=== PATIENT | male | born 1950 | race Two or more races ===

== ENCOUNTER → 2024-10-09 | Outpatient (CLI) | payer OTHER, MEDICAID, SELFPAY ==
[2024-10-09 07:13] LABS: OBS Card Expiration Date 2026/09; OBS Card Lot # 23001; OBS Performed By LAB; OBS QC OK? Yes
[2024-10-09 08:05] LABS: Collection Type, Urine Clean Catch
[2024-10-09 08:30] LABS: Basophils # (Auto) 0.1 Thou/mm3 (0.0-0.2); Basophils % (Auto) 1 % (0-2.5); Eosinophils # (Auto) 0.2 Thou/mm3 (0.0-0.5); Eosinophils % (Auto) 3 % (0-10); Hematocrit 39.3 % (41.0-53.0); Hemoglobin 13.5 g/dL (13.5-16.0); Immature Granulocytes % (Auto) 0 % (0-0); Immature Granulocytes Auto 0.03 Thou/mm3 (0.00-0.00); Lymphocytes # (Auto) 2.5 Thou/mm3 (1.0-4.8); Lymphocytes % (Auto) 35 % (10-50); Mean Corpuscular HGB Conc 34.4 g/dl (31.0-37.0); Mean Corpuscular Hemoglobin 32.4 pg (25.0-35.0); Mean Corpuscular Volume 94 fL (80-100); Monocytes # (Auto) 0.7 Thou/mm3 (0.0-0.8); Monocytes % (Auto) 10 % (0-12); Neutrophils # (Auto) 3.7 Thou/mm3 (1.8-7.7); Neutrophils % (Auto) 51 % (37-80); Nucleated Red Blood Cell % 0 /100 WBC (0); Platelet Count 234 Thou/mm3 (140-440); RDW Standard Deviation 45.2 fL (35.1-43.9); Red Blood Count 4.17 Miln/mm3 (4.50-5.90); White Blood Count 7.3 Thou/mm3 (3.8-10.6)
[2024-10-09 08:35] LABS: Bilirubin,Urine Negative (Negative); Blood,Urine Negative (Negative); Clarity,Urine Clear (Clear/Hazy); Color,Urine Colorless (Lt Yel-Yel); Glucose, Urine Negative (Negative); Ketones,Urine Negative (Negative); Leukocyte Esterase,Urine Negative (Negative); Nitrite,Urine Negative (Negative); Protein,Urine Negative (Neg - Trace); RBC,Urine 1 /hpf (0-3); Specific Gravity,Urine 1.007 (1.001-1.035); Squamous Epithelial Cell,Urine < 1 /hpf (0-5); Urobilinogen,Urine Negative mg/dL (0.0-1.0); WBC,Urine < 1 /hpf (0-5)
[2024-10-09 08:52] LABS: Albumin, Serum 4.8 gm/dL (3.4-4.8); Anion Gap 6 (7-16); BUN/Creatinine Ratio 19 Ratio (12-20); Blood Urea Nitrogen 21 mg/dL (9-23); Cardiac Risk Estimate 3.2 RATIO (4.0-6.7); Chloride 106 mMol/L (98-107); Cholesterol 136 mg/dL (132-200); Creatinine (Component) 1.1 mg/dL (0.6-1.3); Glucose 98 mg/dL (74-106); HDL Cholesterol 42 mg/dL (40-60); LDL Cholesterol,Calculated 52 mg/dL (0-130); Osmolality,Calculated 286 (275-295); Phosphorous 3.9 mg/dL (2.4-5.1); Potassium 4.8 mMol/L (3.4-5.1); Sodium 142 mMol/L (136-145); Thyroid Stimulating Hormone 3.79 uIU/mL (0.55-4.78); Triglycerides 208 mg/dL (30-150); eGFR > 60 See Note
[2024-10-09 12:01] LABS: OBS Developer Lot # 23003; Occult Blood, Stool Negative (Negative); Occult Blood, Stool #2 Negative (Negative); Occult Blood, Stool #3 Negative (Negative)
== END | disposition home or self-care (01) ==
PROVIDERS: PCP Internal Medicine; Referring Provider Internal Medicine; Visit Provider Internal Medicine
DX: I10 Essential (primary) hypertension (principal); E03.9 Hypothyroidism, unspecified; E78.5 Hyperlipidemia, unspecified; Z12.11 Encounter for screening for malignant neoplasm of colon
CPT/HCPCS: 36415; 80061; 80069; 81001; 82270; 84443; 85025

== ENCOUNTER → 2025-02-09 | Outpatient (CLI) | payer MEDICARE, MEDICAID, SELFPAY ==
[2025-02-09 07:52] LABS: Collection Type, Urine Clean Catch
[2025-02-09 08:28] LABS: Basophils # (Auto) 0.1 Thou/mm3 (0.0-0.2); Basophils % (Auto) 1 % (0-2.5); Eosinophils # (Auto) 0.3 Thou/mm3 (0.0-0.5); Eosinophils % (Auto) 3 % (0-10); Hematocrit 37.6 % (41.0-53.0); Immature Granulocytes % (Auto) 0 % (0-0); Immature Granulocytes Auto 0.02 Thou/mm3 (0.00-0.00); Lymphocytes # (Auto) 1.8 Thou/mm3 (1.0-4.8); Lymphocytes % (Auto) 18 % (10-50); Mean Corpuscular HGB Conc 34.6 g/dl (31.0-37.0); Mean Corpuscular Hemoglobin 32.5 pg (25.0-35.0); Mean Corpuscular Volume 94 fL (80-100); Monocytes # (Auto) 1.6 Thou/mm3 (0.0-0.8); Monocytes % (Auto) 16 % (0-12); Neutrophils # (Auto) 6.5 Thou/mm3 (1.8-7.7); Neutrophils % (Auto) 63 % (37-80); Nucleated Red Blood Cell % 0 /100 WBC (0); Platelet Count 180 Thou/mm3 (140-440); RDW Standard Deviation 43.8 fL (35.1-43.9); White Blood Count 10.4 Thou/mm3 (3.8-10.6)
[2025-02-09 08:37] LABS: Glucose Estimated Average 128 mg/dL (80-131); Hemoglobin A1C 6.1 % Hgb (4.8-6.0)
[2025-02-09 08:57] LABS: Alanine Aminotransferase 16 U/L (10-49); Albumin, Serum 4.5 gm/dL (3.4-4.8); Albumin/Globulin Ratio 1.7 (1.2-2.2); Alkaline Phosphatase 82 U/L (46-116); Anion Gap 6 (7-16); Aspartate Amino Transferase 15 U/L (0-34); BUN/Creatinine Ratio 23 Ratio (12-20); Bilirubin,Total 0.9 mg/dL (0.3-1.2); Blood Urea Nitrogen 25 mg/dL (9-23); Calcium 8.9 mg/dL (8.3-10.6); Calcium (Corrected) 8.9 mg/dL (8.5-10.1); Carbon Dioxide 26.9 mMol/L (20.0-31.0); Cardiac Risk Estimate 3.3 RATIO (4.0-6.7); Chloride 108 mMol/L (98-107); Cholesterol 130 mg/dL (132-200); Creatinine (Component) 1.1 mg/dL (0.6-1.3); Globulin 2.7 gm/dL (2.3-3.5); Glucose 110 mg/dL (74-106); HDL Cholesterol 39 mg/dL (40-60); LDL Cholesterol,Calculated 55 mg/dL (0-130); Osmolality,Calculated 286 (275-295); Potassium 4.3 mMol/L (3.4-5.1); Sodium 141 mMol/L (136-145); Thyroid Stimulating Hormone 3.05 uIU/mL (0.55-4.78); Total Protein 7.2 gm/dL (5.7-8.2); Triglycerides 179 mg/dL (30-150); eGFR > 60 See Note
[2025-02-09 09:03] LABS: Bacteria,Urine Rare; Bilirubin,Urine Negative (Negative); Blood,Urine Negative (Negative); Clarity,Urine Clear (Clear/Hazy); Color,Urine Yellow (Lt Yel-Yel); Glucose, Urine Negative (Negative); Ketones,Urine Negative (Negative); Leukocyte Esterase,Urine Negative (Negative); Nitrite,Urine Negative (Negative); Protein,Urine Negative (Neg - Trace); RBC,Urine 19 /hpf (0-3); Specific Gravity,Urine 1.021 (1.001-1.035); Squamous Epithelial Cell,Urine < 1 /hpf (0-5); Urobilinogen,Urine Negative mg/dL (0.0-1.0); WBC,Urine < 1 /hpf (0-5)
== END | disposition home or self-care (01) ==
LOC: COPL 06:49
PROVIDERS: PCP Internal Medicine; Referring Provider Internal Medicine; Visit Provider Internal Medicine
DX: K30 Functional dyspepsia (principal); E03.9 Hypothyroidism, unspecified; I10 Essential (primary) hypertension; E78.5 Hyperlipidemia, unspecified
CPT/HCPCS: 36415; 80053; 80061; 81001; 83036; 84443; 85025

== ENCOUNTER → 2025-06-16 | Outpatient (CLI) | payer MEDICAID, MEDICARE, SELFPAY ==
--- NOTE | 2025-06-16 09:36 | XR_ITS ---
Examination: PA lateral chest 2 views Technique: Upright PA lateral chest 2 views Date and time: June 16, 2025, 0942 hrs., Comparison February 27, 2024 Indications: Shortness of breath one month. Findings: Prominent elevation right hemidiaphragm. Subsegmental atelectasis right base. No lobar pneumonia or pulmonary edema. Normal heart size Impression: Prominent elevation right hemidiaphragm with subsegmental atelectasis right base.
== END | disposition home or self-care (01) ==
PROVIDERS: PCP Internal Medicine; Referring Provider Internal Medicine; Visit Provider Internal Medicine
DX: J98.11 Atelectasis (principal); J98.6 Disorders of diaphragm
CPT/HCPCS: 71046

== ENCOUNTER 2025-07-21 05:26 | Emergency (ER) | payer MEDICARE, MEDICAID, SELFPAY ==
[2025-07-21 05:27] VITALS: BP 154/66; PULSE 77; RESP 18; TEMP 37; O2SAT 95; BMI 31.6
--- NOTE | 2025-07-21 05:43 | XR_ITS ---
Examination: CT abdomen and pelvis without contrast. Coronal 3-D reconstructions. Sagittal 2-D reconstructions. Date and time of exam:July 21, 2025, 0628 hrs., Comparison July 27, 2024 Indications: Onset left flank pain left lower abdominal pain today, history acute diverticulitis sigmoid colon on CT abdomen pelvis July 27, 2024 CTDI: vol (mGy): 9.47 DLP: (mGycm): 677 Technique: Axial images of the abdomen have been obtained, 3 mm slice thickness Intravenous contrast material has not been administered. Low dose protocols were performed. One or more of the following dose reduction techniques were used; automated exposure control, adjustment of the mA and/or KV according to patient size, use of iterative reconstruction technique. Findings: Atelectasis in the right lower lobe No visualized liver or splenic lesion No gallstones No pancreatic or adrenal mass Perinephric stranding Mild to moderate bilateral renal parenchymal scar formation, no renal or ureteral calculi, no hydronephrosis Aorta normal size Normal appendix Diffuse colonic diverticulosis 20 mm fat-containing umbilical hernia Mild acute diverticulitis involving transverse colon at the splenic flexure abnormal seen entire descending colon, no peridiverticular abscess Urinary bladder intact Transverse prostate dimension 4.1 cm Mild osteopenia Impression: Mild acute diverticulitis involving transverse colon at the splenic fracture and almost the entire descending colon, no peridiverticular abscess, differential would also include mild nonspecific colitis, consider colonoscopy follow-up Perinephric stranding No renal or ureteral calculi, no hydronephrosis Normal appendix
--- NOTE | 2025-07-21 05:43 | PD.EDRME ---
Rapid Medical Screening Exam [facility] Arrival date/time: 07/21/25 05:26 75M with history of HTN and hypothyroidism presents to ED with several days of LLQ/flank pain and constipation. Patient states he's had diverticulitis before and this feels similar. Chief Complaint: Abdominal Pain Vital signs: Vital Signs Temperature 98.6 F 07/21/25 05:27 Pulse Rate 77 07/21/25 05:27 Respiratory Rate 18 07/21/25 05:27 Blood Pressure 154/66 H 07/21/25 05:27 Pulse Oximetry (%) 95 07/21/25 05:27 Oxygen Delivery Method Room Air 07/21/25 05:27
[2025-07-21 06:06] LABS: Basophils # (Auto) 0.1 Thou/mm3 (0.0-0.2); Basophils % (Auto) 0 % (0-2.5); Eosinophils # (Auto) 0.2 Thou/mm3 (0.0-0.5); Eosinophils % (Auto) 1 % (0-10); Hematocrit 37.3 % (41.0-53.0); Hemoglobin 12.9 g/dL (13.5-16.0); Immature Granulocytes Auto 0.05 Thou/mm3 (0.00-0.00); Lymphocytes # (Auto) 1.4 Thou/mm3 (1.0-4.8); Lymphocytes % (Auto) 12 % (10-50); Mean Corpuscular HGB Conc 34.6 g/dl (31.0-37.0); Mean Corpuscular Hemoglobin 33.1 pg (25.0-35.0); Mean Corpuscular Volume 96 fL (80-100); Monocytes # (Auto) 0.8 Thou/mm3 (0.0-0.8); Monocytes % (Auto) 7 % (0-12); Neutrophils # (Auto) 9.8 Thou/mm3 (1.8-7.7); Neutrophils % (Auto) 80 % (37-80); Nucleated Red Blood Cell # 0.00 Thou/mm3 (0.00-0.00); Nucleated Red Blood Cell % 0 /100 WBC (0); Platelet Count 165 Thou/mm3 (140-440); RDW Standard Deviation 44.2 fL (35.1-43.9); Red Blood Count 3.90 Miln/mm3 (4.50-5.90); White Blood Count 12.3 Thou/mm3 (3.8-10.6)
[2025-07-21 06:22] LABS: Alanine Aminotransferase 17 U/L (10-49); Albumin, Serum 4.8 gm/dL (3.4-4.8); Albumin/Globulin Ratio 2.0 (1.2-2.2); Alkaline Phosphatase 73 U/L (46-116); Anion Gap 10 (7-16); Aspartate Amino Transferase 18 U/L (0-34); BUN/Creatinine Ratio 14 Ratio (12-20); Bilirubin,Total 1.3 mg/dL (0.3-1.2); Blood Urea Nitrogen 15 mg/dL (9-23); Calcium 9.9 mg/dL (8.3-10.6); Calcium (Corrected) 9.9 mg/dL (8.5-10.1); Carbon Dioxide 27.4 mMol/L (20.0-31.0); Chloride 106 mMol/L (98-107); Creatinine (Component) 1.1 mg/dL (0.6-1.3); Estimated Creatinine Clearance 58.6 mL/min (>60); Globulin 2.4 gm/dL (2.3-3.5); Glucose 196 mg/dL (74-106); Osmolality,Calculated 290 (275-295); Potassium 4.2 mMol/L (3.4-5.1); Sodium 143 mMol/L (136-145); Total Protein 7.2 gm/dL (5.7-8.2); eGFR > 60 See Note
[2025-07-21 06:28] LABS: Collection Type, Urine Clean Catch
[2025-07-21 06:37] LABS: Bilirubin,Urine Negative (Negative); Blood,Urine Negative (Negative); Clarity,Urine Clear (Clear/Hazy); Color,Urine Lt-Yellow (Lt Yel-Yel); Culture Indicated,Urine Not Indicated; Glucose, Urine Negative (Negative); Ketones,Urine Negative (Negative); Leukocyte Esterase,Urine Negative (Negative); Nitrite,Urine Negative (Negative); PH,Urine 6.0 (5.0-7.0); Protein,Urine Negative (Neg - Trace); RBC,Urine 5 /hpf (0-3); Specific Gravity,Urine 1.012 (1.001-1.035); Squamous Epithelial Cell,Urine < 1 /hpf (0-5); Urobilinogen,Urine Negative mg/dL (0.0-1.0); WBC,Urine 1 /hpf (0-5)
[2025-07-21 07:47] VITALS: BP 154/62; PULSE 64; RESP 18; O2SAT 96
--- NOTE | 2025-07-21 07:56 | PD.EDABDPN ---
ED Abdominal Pain RME/HPI General Chief Complaint: Abdominal Pain Stated complaint: CONSTIPATED X3 DAYS Time seen by provider: 07/21/25 07:25 Arrival date/time: 07/21/25 05:26 Limitations: no limitations RME / HPI RME / HPI narrative: 75-year-old male here for evaluation of abdominal pain with blood in stool onset yesterday. Notes that he started having significant lower abdominal pain mainly to the left lower abdomen after which she started noticing blood in his stool. The amount of blood has since diminished since yesterday though still having small amounts of blood. Abdominal pain not as bad as yesterday though still present. Denies any fever, nausea, vomiting, diarrhea, other acute symptoms at this time. Does have a history of hypertension, hypothyroidism, diverticulitis in the past. Related Data Home Medications ?Medication ?Instructions ?Recorded ?Confirmed indomethacin 50 mg capsule 50 mg PO DAILY 10/27/21 05/04/24 lisinopril 40 mg tablet 40 mg PO DAILY 10/27/21 05/04/24 paroxetine HCl 20 mg tablet 10 mg PO QDAY 03/12/23 05/04/24 amlodipine 10 mg tablet 10 mg PO QDAY 05/04/24 05/04/24 aspirin 81 mg chewable tablet 81 mg PO QDAY 05/04/24 05/04/24 cetirizine 10 mg tablet 10 mg PO QDAY 05/04/24 05/04/24 levothyroxine 25 mcg capsule 25 mcg PO QDAY 05/04/24 05/04/24 pantoprazole 40 mg tablet,delayed 40 mg PO QDAY 05/04/24 05/04/24 release lorazepam 0.5 mg tablet 0.5 mg PO QDAY PRN Anxiety 05/06/24 05/06/24 Previous Rx's ?Medication ?Instructions ?Recorded cephalexin 500 mg capsule 500 mg PO BID #14 caps 03/14/23 ciprofloxacin HCl 500 mg tablet 500 mg PO BID #14 tabs 07/27/24 (Cipro) dicyclomine 20 mg tablet 20 mg PO BID #20 tabs 07/27/24 meloxicam 7.5 mg tablet 7.5 mg PO QDAY #14 tabs 07/27/24 acetaminophen 500 mg capsule 1,000 mg (2 x 500 mg) PO Q6H PRN 07/21/25 fever or pain #30 caps amoxicillin 875 mg-potassium 1 tab PO Q8H 5 days #15 tabs 07/21/25 clavulanate 125 mg tablet Allergies Allergy/AdvReac Type Severity Reaction Status Date / Time No Known Allergies Allergy Verified 07/27/24 09:48 Review of Systems Review of Systems Systems Reviewed: All systems reviewed, normal except as documented Past Medical History Past Medical History Comments PMH COMMENT: Hypertension, hypothyroidism, diverticulitis, ED Exam Narrative Physical exam: Constitutional: Awake, alert, nontoxic, no acute distress HEENT: Normocephalic, atraumatic, extraocular movements intact. Neck: Supple CV: Regular rate and rhythm, no murmurs/rubs/gallops Lungs: Clear to auscultation BL, no respiratory distress. Abd: Soft, tender to palpation of left abdomen, ND, no rebound or guarding noted. Skin: Warm, dry, intact General Limitations: Present no limitations Course Course Course Narrative: 75-year-old male here for evaluation of left side abdominal pain with blood in stools with history of diverticulitis in the past. Labs revealing mild leukocytosis and CT abdomen pelvis showing acute mild diverticulitis involving transverse colon at splenic flexure extending to nearly the entire descending colon. No evidence of perforation. Patient is vitally stable and overall nontoxic appearance. Will give initial dose of antibiotic here and prescription for home. Is advised to follow-up with PCP in the next few days for recheck. Strict return precautions discussed for any worsening symptoms. Quality Measures none Orders Category Date Time Status CT abdomen pelvis wo con Stat Exams 07/21/25 05:43 Completed CBC Stat Lab 07/21/25 05:49 Completed CMP [Comprehensive Metabolic Panel] Stat Lab 07/21/25 05:49 Completed Urinalysis, C/S if Indicated Stat Lab 07/21/25 06:14 Completed Vital Signs Vital signs: Vital Signs Temperature 98.6 F 07/21/25 05:27 Pulse Rate 77 07/21/25 05:27 Respiratory Rate 18 07/21/25 05:27 Blood Pressure 154/66 H 07/21/25 05:27 Pulse Oximetry (%) 95 07/21/25 05:27 Oxygen Delivery Method Room Air 07/21/25 05:27 Abdominal Pain MDM Patient data External records reviewed:: [facility] previous records Clinical information provided by:: patient and family Social determinants that could affect healthcare access:: none Patient has the following chronic illnesses:: Hypertension, hypothyroidism How is presenting disease/condition affected by chronic disease/condition?: uneffected by Evaluation data The following diagnostics were reviewed and interpreted by me:: lab results and radiology exam(s) Lab and/or radiology exams considered but not ordered:: None Interpretation Summary: CT abdomen and pelvis without contrast. Coronal 3-D reconstructions. Sagittal 2-D reconstructions. Date and time of exam:July 21, 2025, 0628 hrs., Comparison July 27, 2024 Indications: Onset left flank pain left lower abdominal pain today, history acute diverticulitis sigmoid colon on CT abdomen pelvis July 27, 2024 CTDI: vol (mGy): 9.47 DLP: (mGycm): 677 Technique: Axial images of the abdomen have been obtained, 3 mm slice thickness Intravenous contrast material has not been administered. Low dose protocols were performed. One or more of the following dose reduction techniques were used; automated exposure control, adjustment of the mA and/or KV according to patient size, use of iterative reconstruction technique. Findings: Atelectasis in the right lower lobe No visualized liver or splenic lesion No gallstones No pancreatic or adrenal mass Perinephric stranding Mild to moderate bilateral renal parenchymal scar formation, no renal or ureteral calculi, no hydronephrosis Aorta normal size Normal appendix Diffuse colonic diverticulosis 20 mm fat-containing umbilical hernia Mild acute diverticulitis involving transverse colon at the splenic flexure abnormal seen entire descending colon, no peridiverticular abscess Urinary bladder intact Transverse prostate dimension 4.1 cm Mild osteopenia Impression: Mild acute diverticulitis involving transverse colon at the splenic fracture and almost the entire descending colon, no peridiverticular abscess, differential would also include mild nonspecific colitis, consider colonoscopy follow-up Perinephric stranding No renal or ureteral calculi, no hydronephrosis Normal appendix Medications / Prescriptions Medications or Prescriptions considered but not ordered:: None Medication administrations:: Augmentin Consultations Consultation(s) initiated? (list below): No Diagnosis Differential diagnosis abdominal pain: abdominal pain, constipation, diverticulitis, gastroenteritis and small bowel obstruction Most likely diagnosis given after review of the tests above:: Acute diverticulitis Admission Indicated Admission indicated?: not indicated Admission Request Was there a request for admission?: No Disposition Plan Disposition Plan: Discharge Discharge Attestation Discharge Attestation: The patient and all family members were given an opportunity to ask questions and understood the discharge instructions. Discharge instructions specifically effects, indications for sooner follow up or return to the emergency department, and the expected course of current diagnosis. Patient condition: Stable Discharge Plan Plan Patient Disposition: HOME (Self Care) Patient condition on transfer: Stable Prescriptions/Referrals Prescriptions/Med Rec: New amoxicillin-pot clavulanate 875-125 mg tablet 1 tab PO Q8H 5 Days Qty: 15 0RF acetaminophen 500 mg capsule 1,000 mg PO Q6H PRN (Reason: fever or pain) Qty: 30 0RF No Action indomethacin 50 mg Capsule 50 mg PO DAILY Rx Instructions: with food or milk lisinopril 40 mg tablet 40 mg PO DAILY paroxetine HCl 20 mg Tablet 10 mg PO QDAY cephalexin 500 mg capsule 500 mg PO BID Qty: 14 0RF cetirizine 10 mg Tablet 10 mg PO QDAY amlodipine 10 mg Tablet 10 mg PO QDAY pantoprazole 40 mg Tablet,Delayed Release (Dr/Ec) 40 mg PO QDAY aspirin 81 mg Tablet,Chewable 81 mg PO QDAY levothyroxine 25 mcg Capsule 25 mcg PO QDAY lorazepam 0.5 mg Tablet 0.5 mg PO QDAY PRN (Reason: Anxiety) ciprofloxacin HCl [Cipro] 500 mg tablet 500 mg PO BID Qty: 14 0RF dicyclomine 20 mg tablet 20 mg PO BID Qty: 20 0RF meloxicam 7.5 mg tablet 7.5 mg PO QDAY Qty: 14 0RF Referrals: No Primary/Family,Physician [Primary Care Provider] - In 1 week Problem List Clinical Impression: Diverticulitis Patient/Caregiver Discharge Instructions Diet Instructions: liquid diet for the next few days - may eat jello's, pudding, broths/soups, herbal tea's, etc. Education Materials: Discharge Instructions for ..., Full Liquid Diet Dc Additional Instructions: Some general health principles that can help you are the [employer] principles: Nutrition (plant-based diet, avoiding meats in general, avoiding more processed foods) Exercise (Daily exercise/walks as tolerated) Water (Drink adequate fresh water to maintain hydration, concentrating on water rather than on soda, coffee, tea, juice, etc for hydration) [place] (Spend time - 15-20 minutes or so with skin exposed in the excellence consultant and late evening sun for Vitamin D health benefits) [place] (Avoid alcohol, illicit drugs, caffeinated beverages, smoking, etc) Air (Deep breathing exercises in the early mornings in fresh air) Rest (Adequate rest at night, going to bed a few hours before midnight and avoiding all screens/television/loud music in the time right before going to bed, also avoiding heavy meals just prior to going to bed) Trust in God (Spend time daily in Bible study and prayer - health benefits in contemplation of God's true character) Additional resources that can benefit: [email or web address], look under resources and seminars. Print Language: Bulgarian Stand Alone Forms: [employer] Award Info., Patient Portal Info Letter
[2025-07-21] MEDS: ACETAMINOPHEN 325 MG TABLET 1000 MG PO (08:13)
[2025-07-21] MEDS: AMOXICILLIN/POT CLAV 875 TABLET 1 TAB PO (08:13)
[2025-07-21 08:18] VITALS: BP 142/65; PULSE 64; RESP 18; O2SAT 94
== END 2025-07-21 08:25 | disposition home or self-care (01) ==
PROVIDERS: Physician Assistant; Emergency Provider Family Medicine
DX: K57.33 Diverticulitis of large intestine without perforation or abscess with bleeding (principal); I10 Essential (primary) hypertension; E03.9 Hypothyroidism, unspecified; Z87.19 Personal history of other diseases of the digestive system
CPT/HCPCS: 36415; 74176; 80053; 81001; 85025; 99284; A9270

== ENCOUNTER → 2025-07-26 | Outpatient (CLI) | payer MEDICARE, MEDICAID, SELFPAY ==
[2025-07-26 08:09] LABS: Collection Type, Urine Clean Catch
[2025-07-26 08:36] LABS: Basophils # (Auto) 0.1 Thou/mm3 (0.0-0.2); Basophils % (Auto) 1 % (0-2.5); Eosinophils # (Auto) 0.2 Thou/mm3 (0.0-0.5); Eosinophils % (Auto) 3 % (0-10); Hematocrit 36.3 % (41.0-53.0); Hemoglobin 12.1 g/dL (13.5-16.0); Immature Granulocytes Auto 0.04 Thou/mm3 (0.00-0.00); Lymphocytes # (Auto) 2.1 Thou/mm3 (1.0-4.8); Lymphocytes % (Auto) 29 % (10-50); Mean Corpuscular HGB Conc 33.3 g/dl (31.0-37.0); Mean Corpuscular Hemoglobin 32.1 pg (25.0-35.0); Mean Corpuscular Volume 96 fL (80-100); Monocytes # (Auto) 0.8 Thou/mm3 (0.0-0.8); Monocytes % (Auto) 10 % (0-12); Neutrophils # (Auto) 4.0 Thou/mm3 (1.8-7.7); Neutrophils % (Auto) 55 % (37-80); Nucleated Red Blood Cell # 0.00 Thou/mm3 (0.00-0.00); Nucleated Red Blood Cell % 0 /100 WBC (0); Platelet Count 203 Thou/mm3 (140-440); RDW Standard Deviation 43.4 fL (35.1-43.9); Red Blood Count 3.77 Miln/mm3 (4.50-5.90); White Blood Count 7.2 Thou/mm3 (3.8-10.6)
[2025-07-26 08:42] LABS: Bilirubin,Urine Negative (Negative); Blood,Urine Negative (Negative); Clarity,Urine Clear (Clear/Hazy); Color,Urine Colorless (Lt Yel-Yel); Glucose, Urine Negative (Negative); Ketones,Urine Negative (Negative); Leukocyte Esterase,Urine Negative (Negative); Nitrite,Urine Negative (Negative); PH,Urine 6.5 (5.0-7.0); Protein,Urine Negative (Neg - Trace); RBC,Urine < 1 /hpf (0-3); Specific Gravity,Urine 1.006 (1.001-1.035); Squamous Epithelial Cell,Urine < 1 /hpf (0-5); Urobilinogen,Urine Negative mg/dL (0.0-1.0); WBC,Urine 1 /hpf (0-5)
[2025-07-26 08:51] LABS: Alanine Aminotransferase 18 U/L (10-49); Albumin, Serum 4.5 gm/dL (3.4-4.8); Albumin/Globulin Ratio 2.0 (1.2-2.2); Alkaline Phosphatase 61 U/L (46-116); Anion Gap 9 (7-16); Aspartate Amino Transferase 18 U/L (0-34); BUN/Creatinine Ratio 13 Ratio (12-20); Bilirubin,Total 0.7 mg/dL (0.3-1.2); Blood Urea Nitrogen 14 mg/dL (9-23); Calcium 9.3 mg/dL (8.3-10.6); Calcium (Corrected) 9.3 mg/dL (8.5-10.1); Carbon Dioxide 28.7 mMol/L (20.0-31.0); Cardiac Risk Estimate 2.5 RATIO (4.0-6.7); Chloride 104 mMol/L (98-107); Cholesterol 102 mg/dL (132-200); Creatinine (Component) 1.1 mg/dL (0.6-1.3); Globulin 2.2 gm/dL (2.3-3.5); Glucose 104 mg/dL (74-106); HDL Cholesterol 41 mg/dL (40-60); LDL Cholesterol,Calculated 39 mg/dL (0-130); Osmolality,Calculated 283 (275-295); Potassium 4.7 mMol/L (3.4-5.1); Sodium 142 mMol/L (136-145); Thyroid Stimulating Hormone 3.15 uIU/mL (0.55-4.78); Total Protein 6.7 gm/dL (5.7-8.2); Triglycerides 109 mg/dL (30-150); eGFR > 60 See Note
[2025-07-26 09:18] LABS: Glucose Estimated Average 128 mg/dL (80-131); Hemoglobin A1C 6.1 % Hgb (4.8-6.0)
== END | disposition home or self-care (01) ==
LOC: COPL 06:55
PROVIDERS: PCP Internal Medicine; Referring Provider Internal Medicine; Visit Provider Internal Medicine
DX: K30 Functional dyspepsia (principal); E03.9 Hypothyroidism, unspecified; I10 Essential (primary) hypertension; E78.5 Hyperlipidemia, unspecified
CPT/HCPCS: 36415; 80053; 80061; 81001; 83036; 84443; 85025